=== PATIENT | male | born 1965 | race Caucasian/White ===

== ENCOUNTER 2021-07-03 17:33 | Emergency (ER) | payer OTHER | END 2021-07-03 21:56 | disposition left against medical advice (07) | LOC: ER1 17:33 | DX: S89.92XA Unspecified injury of left lower leg, initial encounter (principal); F17.200 Nicotine dependence, unspecified, uncomplicated; W01.0XXA Fall on same level from slipping, tripping and stumbling without subsequent striking against object, initial encounter | CPT/HCPCS: 29530; 73700; 99283 ==